=== PATIENT | female | born 1950 | race Caucasian/White ===

== ENCOUNTER → 2018-08-24 | Outpatient (CLI) | payer MEDICARE ==
--- NOTE | 2018-08-24 15:23 | BD ---
EXAMINATION TYPE: Axial Bone Density DATE OF EXAM: 08/24/2018 COMPARISON: NONE CLINICAL HISTORY: Postmenopausal female. Osteoporosis screening. Height: 5 FT 1 1/4 IN Weight: 149 FRAX RISK QUESTIONS: RISK FACTORS HISTORY OF: Surgery to Spine/Hip(right/left)/Wrist (right/left): LUMBAR When: 2000 Active: YES Postmenopausal woman: AGE 57 MEDICATIONS: Thyroid Medications: YES Which medication: ARMJUSTINO THYROID How Lon YEARS Additional Medications: ARMOUR THYROID Additional History: EXAM MEASUREMENTS: Bone mineral density about the R hip (g/cm2): 0.932 Bone mineral density about the L hip (g/cm2): 1.034 T Score values are as follows: -----R Neck: -0.8 -----L Neck: 0.0 -----R Total: 0.7 -----L Total: 1.1 BASELINE Bone mineral density about the L Wrist (g/cm2): 0.683 T Score values are as follows: -----Dist. R+U: 2.6 -----Prox. R+U: -1.0 -----Radius total: 0.1 BASELINE IMPRESSION: Normal (Values between +1 and -1 indicate normal bone mass). Consider repeating this study in 5 year s or sooner if there is some new clinical indication. NOTE: T-SCORE=SD OF THE YOUNG ADULT MEAN.
--- NOTE | 2018-08-31 08:23 | MM ---
Reason for exam: screening (asymptomatic). History: Patient is postmenopausal and had first child at age 40. MG 3D Screening Mammo W/Cad Bilateral CC and MLO view(s) were taken. No prior studies available for comparison. The breast tissue is heterogeneously dense. This may lower the sensitivity of mammography. No suspicious abnormality. No significant changes when compared with prior studies. ASSESSMENT: Negative, BI-RAD 1 RECOMMENDATION: Routine screening mammogram of both breasts in 1 year.
== END | disposition home or self-care (01) ==
LOC: RADMAMWWP 13:52
PROVIDERS: ATTEND Family Medicine
DX: Z12.31 Encounter for screening mammogram for malignant neoplasm of breast (principal); Z78.0 Asymptomatic menopausal state
CPT/HCPCS: 77063; 77067; 77080